=== PATIENT | female | born 1995 | race Caucasian/White ===

== ENCOUNTER 2017-10-20 19:13 | Inpatient (IN) | payer MEDICAID, OTHER ==
[~2017-10-20] VITALS: Ht 165.1 cm; Wt 81.8 kg
[~2017-10-20 19:13] MED LIST: ONDA8TAB9 PO
[2017-10-20] MEDS ORDERED: normal saline 1000ML IV soln IVB ONE (19:30)
[2017-10-20 19:52] LABS: BASOPHILS # (AUTO) 0.1 X10'3 (0-0.2); BASOPHILS % (AUTO) 0.4 % (0-1); EOSINOPHILS # (AUTO) 0.5 X10'3 (0-0.9); EOSINOPHILS % (AUTO) 2.9 % (0-6); HEMOGLOBIN 14.4 g/dl (12.0-16.0); LYMPHOCYTES # (AUTO) 2.8 X10'3 (1.1-4.8); LYMPHOCYTES % (AUTO) 17.8 % (21-51); MEAN CORPUSCULAR HEMOGLOBIN 31.1 PG (27.0-31.0); MEAN CORPUSCULAR HGB CONC 33.5 % (33.0-36.5); MEAN CORPUSCULAR VOLUME 92.8 FL (78-98); MEAN PLATELET VOLUME 9.3 FL (7.4-10.4); MONOCYTES # (AUTO) 0.7 X10'3 (0-0.9); MONOCYTES % (AUTO) 4.5 % (2-12); NEUTROPHILS # (AUTO) 11.7 X10'3 (1.8-7.7); NEUTROPHILS % (AUTO) 74.4 % (42-75); PLATELET COUNT 203 X10'3 (140-440); RED BLOOD COUNT 4.63 X10'6 (4.20-5.60); RED CELL DISTRIBUTION WIDTH 13.4 % (11.5-14.5); WHITE BLOOD COUNT 15.7 X10'3 (4.5-11.0)
[2017-10-20 20:01] LABS: PARTIAL THROMBOPLASTIN TIME 26 SECONDS (22-32); PROTHROMBIN TIME 10.1 SECONDS (9.0-12.0)
[2017-10-20 20:04] LABS: URINE HCG NEGATIVE (NEG)
[2017-10-20] MEDS ORDERED: HYDROmorphone 1 mg/ml syringe IV ONE (20:05)
[2017-10-20] MEDS ORDERED: ondansetron/PF 4mg/2ml inj IV ONE (20:05)
[2017-10-20 20:06] LABS: ALANINE AMINOTRANSFERASE 35 U/L (12-78); ALBUMIN 4.3 G/DL (3.4-5.0); ALBUMIN/GLOBULIN RATIO 1.2 (1.1-1.5); ALKALINE PHOSPHATASE 71 IU/L (46-116); ANION GAP 11 (8-16); ASPARTATE AMINO TRANSFERASE 24 U/L (10-37); BILIRUBIN,TOTAL 0.4 MG/DL (0.1-1.0); BLOOD UREA NITROGEN 10 MG/DL (7-18); BUN/CREATININE RATIO 15.2 (6.6-38.0); CHLORIDE 105 MMOL/L (99-107); CREATININE 0.66 MG/DL (0.40-0.90); GLUCOSE 100 MG/DL (70-104); LIPASE 109 U/L (73-393); POTASSIUM 3.5 MMOL/L (3.5-5.1); SODIUM 140 MMOL/L (135-145); TOTAL CARBON DIOXIDE 24.4 MMOL/L (24-32); TOTAL PROTEIN 7.8 G/DL (6.4-8.2); eGFR > 90 ML/MIN
[2017-10-20 20:26] LABS: CLARITY,URINE CLEAR (Clear); COLOR,URINE YELLOW (Yellow); GLUCOSE, URINE NEGATIVE (Neg); KETONES,URINE NEGATIVE (Neg); LEUKOCYTE ESTERASE ,URINE NEGATIVE (Neg); NITRITES, URINE NEGATIVE (Neg); OCCULT BLOOD,URINE NEGATIVE (Neg); PH,URINE >=9.0 (4.8-8.0); PROTEIN,URINE 30 mg/dl (Neg); UROBILINOGEN,URINE 0.2 E.U/dL (0.2-1.0)
[2017-10-20 20:29] LABS: UA COLLECTION TYPE CLN CATCH MIDSTREAM
[2017-10-20 20:39] LABS: BACTERIA,URINE 2+ /HPF (Neg); RBC,URINE NONE SEEN /HPF (0-2); SQUAMOUS EPITHELIAL CELL,UR MANY /LPF (FEW); WBC,URINE NONE SEEN /HPF (0-4)
[2017-10-20] MEDS ORDERED: magnesium hydroxide 30ml (MOM) UD suspension PO PRN (22:30)
[2017-10-20] MEDS ORDERED: mag hydrox/Alum hydrox/simeth 30ml oral suspension PO PRN (22:30)
[2017-10-20] MEDS ORDERED: ondansetron/PF 4mg/2ml inj IV PRN (22:30)
[2017-10-20] MEDS ORDERED: acetaminophen 325mg tablet PO PRN (22:30)
[2017-10-20] MEDS ORDERED: normal saline 1000ml 1,000 ML IV ONE (22:45)
[2017-10-20 23:45] VITALS: BP 97/60
[2017-10-21] MEDS: normal saline 1000ml 1,000 ML IV SCH ×3 (01:57→23:57)
[2017-10-21 04:30] VITALS: BP 117/71
[2017-10-21 05:20] LABS: BASOPHILS % (AUTO) 0.3 % (0-1); EOSINOPHILS # (AUTO) 0.3 X10'3 (0-0.9); EOSINOPHILS % (AUTO) 2.6 % (0-6); HEMATOCRIT 38.3 % (35.0-45.0); HEMOGLOBIN 12.8 g/dl (12.0-16.0); LYMPHOCYTES # (AUTO) 3.6 X10'3 (1.1-4.8); LYMPHOCYTES % (AUTO) 29.5 % (21-51); MEAN CORPUSCULAR HGB CONC 33.4 % (33.0-36.5); MEAN CORPUSCULAR VOLUME 92.8 FL (78-98); MEAN PLATELET VOLUME 9.5 FL (7.4-10.4); MONOCYTES # (AUTO) 0.8 X10'3 (0-0.9); MONOCYTES % (AUTO) 6.4 % (2-12); NEUTROPHILS # (AUTO) 7.4 X10'3 (1.8-7.7); NEUTROPHILS % (AUTO) 61.2 % (42-75); PLATELET COUNT 177 X10'3 (140-440); RED BLOOD COUNT 4.13 X10'6 (4.20-5.60); RED CELL DISTRIBUTION WIDTH 13.1 % (11.5-14.5); WHITE BLOOD COUNT 12.1 X10'3 (4.5-11.0)
[2017-10-21 05:37] LABS: ALBUMIN 3.2 G/DL (3.4-5.0); ANION GAP 8 (8-16); BLOOD UREA NITROGEN 7 MG/DL (7-18); BUN/CREATININE RATIO 12.1 (6.6-38.0); CALCIUM 7.9 MG/DL (8.5-10.1); CHLORIDE 111 MMOL/L (99-107); CREATININE 0.58 MG/DL (0.40-0.90); GLUCOSE 89 MG/DL (70-104); POTASSIUM 3.9 MMOL/L (3.5-5.1); SODIUM 143 MMOL/L (135-145); eGFR > 90 ML/MIN
[2017-10-21 08:00] VITALS: BP 115/83
[2017-10-21 11:14] VITALS: BP 100/68
[2017-10-21] MEDS ORDERED: NORMAL SALINE IV ONE (13:10)
[2017-10-21] MEDS ORDERED: SINCALIDE IV ONE (13:10)
[2017-10-21] MEDS: acetaminophen 325mg tablet PO PRN ×2 (16:14→21:51)
[2017-10-21 20:00] VITALS: BP 131/85
[2017-10-22] VITALS (17 sets, daily range): BP systolic 117–142; BP diastolic 60–84
[2017-10-22 05:48] LABS: BASOPHILS % (AUTO) 0.3 % (0-1); EOSINOPHILS # (AUTO) 0.5 X10'3 (0-0.9); EOSINOPHILS % (AUTO) 5.7 % (0-6); HEMATOCRIT 37.3 % (35.0-45.0); HEMOGLOBIN 12.5 g/dl (12.0-16.0); LYMPHOCYTES # (AUTO) 3.7 X10'3 (1.1-4.8); LYMPHOCYTES % (AUTO) 39.8 % (21-51); MEAN CORPUSCULAR HEMOGLOBIN 30.9 PG (27.0-31.0); MEAN CORPUSCULAR HGB CONC 33.6 % (33.0-36.5); MEAN PLATELET VOLUME 9.7 FL (7.4-10.4); MONOCYTES # (AUTO) 0.6 X10'3 (0-0.9); MONOCYTES % (AUTO) 6.4 % (2-12); NEUTROPHILS # (AUTO) 4.4 X10'3 (1.8-7.7); NEUTROPHILS % (AUTO) 47.8 % (42-75); PLATELET COUNT 174 X10'3 (140-440); RED BLOOD COUNT 4.06 X10'6 (4.20-5.60); RED CELL DISTRIBUTION WIDTH 13.5 % (11.5-14.5); WHITE BLOOD COUNT 9.3 X10'3 (4.5-11.0)
[2017-10-22 05:58] LABS: ALBUMIN 3.2 G/DL (3.4-5.0); ANION GAP 6 (8-16); BLOOD UREA NITROGEN 7 MG/DL (7-18); BUN/CREATININE RATIO 10.3 (6.6-38.0); CALCIUM 8.2 MG/DL (8.5-10.1); CHLORIDE 110 MMOL/L (99-107); CREATININE 0.68 MG/DL (0.40-0.90); GLUCOSE 77 MG/DL (70-104); POTASSIUM 3.9 MMOL/L (3.5-5.1); SODIUM 140 MMOL/L (135-145); TOTAL CARBON DIOXIDE 23.9 MMOL/L (24-32); eGFR > 90 ML/MIN
[2017-10-22] MEDS: normal saline 1000ml 1,000 ML IV SCH (10:27)
[2017-10-22] MEDS: acetaminophen 325mg tablet PO PRN (13:37)
[2017-10-22] MEDS ORDERED: ringers solution, lacted 1,000 ML IV SCH (14:06)
[2017-10-22] MEDS ORDERED: fentaNYL/PF 50MCG/1 ML 2ML syringe ONE ×2 (14:08→15:03)
[2017-10-22] MEDS ORDERED: midazolam 2 mg/2 ml injection ONE (14:08)
[2017-10-22] MEDS ORDERED: propofol inj 20 ML IV ONE (14:10)
[2017-10-22] MEDS ORDERED: rocuronium 10mg/ml inj IV ONE (14:10)
[2017-10-22] MEDS ORDERED: proCHLORperazine 10 MG/2 ml inj IV PRN (14:10)
[2017-10-22] MEDS ORDERED: LIDOcaine 2% (20mg/ml) 5ml vial ONE (14:10)
[2017-10-22] MEDS ORDERED: ondansetron/PF 4mg/2ml inj IV PRN (14:10)
[2017-10-22] MEDS ORDERED: meperidine/PF 25mg/ml syringe IV PRN ×3 (14:10)
[2017-10-22] MEDS ORDERED: LIDOcaine 1% 30ml vial 30 ML ONE (14:15)
[2017-10-22] MEDS ORDERED: BUPIVAcaine/PF 2.5 mg/ml (0.25%) 30ml vial ONE (14:15)
[2017-10-22] MEDS ORDERED: LIDOcaine 1% 30ml vial IJ ONE (14:22)
[2017-10-22] MEDS ORDERED: sevoflurane 250ml liquid IH ONE (14:47)
[2017-10-22] MEDS ORDERED: dexamethasone sod phosphate 4mg/ml inj. ONE (15:15)
[2017-10-22] MEDS ORDERED: ceFAZolin 1000mg inj ONE (15:15)
[2017-10-22] MEDS ORDERED: neostigmine methylsulfate 1 MG/ML 10ml vial ONE (15:42)
[2017-10-22] MEDS ORDERED: glycopyrrolate 0.2mg/ml inj ONE (15:42)
[2017-10-22] MEDS ORDERED: ondansetron/PF 4mg/2ml inj ONE (15:42)
[2017-10-22] MEDS ORDERED: ketorolac trometh. 30mg/ml inj. ONE (15:42)
[2017-10-23] MEDS: normal saline 1000ml 1,000 ML IV SCH ×3 (00:26→10:26)
[2017-10-23 04:00] VITALS: BP 140/77
[2017-10-23 05:00] LABS: BASOPHILS % (AUTO) 0.1 % (0-1); EOSINOPHILS # (AUTO) 0.2 X10'3 (0-0.9); EOSINOPHILS % (AUTO) 1.1 % (0-6); HEMATOCRIT 38.5 % (35.0-45.0); HEMOGLOBIN 13.1 g/dl (12.0-16.0); LYMPHOCYTES # (AUTO) 1.8 X10'3 (1.1-4.8); LYMPHOCYTES % (AUTO) 12.9 % (21-51); MEAN CORPUSCULAR HEMOGLOBIN 31.3 PG (27.0-31.0); MEAN CORPUSCULAR HGB CONC 34.1 % (33.0-36.5); MEAN CORPUSCULAR VOLUME 91.8 FL (78-98); MEAN PLATELET VOLUME 9.6 FL (7.4-10.4); MONOCYTES # (AUTO) 0.6 X10'3 (0-0.9); NEUTROPHILS # (AUTO) 11.2 X10'3 (1.8-7.7); NEUTROPHILS % (AUTO) 81.9 % (42-75); PLATELET COUNT 197 X10'3 (140-440); RED BLOOD COUNT 4.19 X10'6 (4.20-5.60); RED CELL DISTRIBUTION WIDTH 12.7 % (11.5-14.5); WHITE BLOOD COUNT 13.7 X10'3 (4.5-11.0)
[2017-10-23 05:21] LABS: ALBUMIN 3.7 G/DL (3.4-5.0); ANION GAP 11 (8-16); BLOOD UREA NITROGEN 9 MG/DL (7-18); BUN/CREATININE RATIO 13.6 (6.6-38.0); CALCIUM 8.6 MG/DL (8.5-10.1); CHLORIDE 104 MMOL/L (99-107); CREATININE 0.66 MG/DL (0.40-0.90); GLUCOSE 85 MG/DL (70-104); SODIUM 136 MMOL/L (135-145); TOTAL CARBON DIOXIDE 21.2 MMOL/L (24-32); eGFR > 90 ML/MIN
[2017-10-23 07:27] VITALS: BP 127/91
[2017-10-23] MEDS: HYDROcodone/acetaminophen 10/325mg tab PO PRN ×2 (10:18→17:18)
[2017-10-23] MEDS ORDERED: ibuprofen tablet 400 MG TABLET PO SCH (12:30)
[2017-10-23] MEDS ORDERED: HYDR-3972 PO (16:44)
== END 2017-10-23 17:00 | disposition home or self-care (01) | DRG 263 ==
LOC: ER 19:13 → ED HOLD 22:26 → SUR 3N 23:51 → PACU 10-22 14:24 → SUR 3N 10-22 16:50
PROVIDERS: ADMIT Internal Medicine; ATTEND Surgery
PROC: CF141ZZ Planar Nuclear Medicine Imaging of Gallbladder using Technetium 99m (Tc-99m) (ICD-10-PCS; 2017-10-21)
PROC: 0FT44ZZ Resection of Gallbladder, Percutaneous Endoscopic Approach (ICD-10-PCS; principal; 2017-10-22 14:48)
DX: K82.8 Other specified diseases of gallbladder (principal); F17.210 Nicotine dependence, cigarettes, uncomplicated; Z82.49 Family history of ischemic heart disease and other diseases of the circulatory system; Z98.891 History of uterine scar from previous surgery; Z71.6 Tobacco abuse counseling
CPT/HCPCS: 36415; 76700; 78227; 80048; 80053; 81001; 81025; 83690; 85025; 85610; 85730; 87070; 96374; 96375; 99285; A7000; A9537; J0690; J1100; J1170; J1885; J2001; J2175; J2250; J2270; J2405; J2704; J2710; J2805; J3010; J3490; J7030; J7120

== ENCOUNTER 2017-12-02 11:26 | Emergency (ER) | payer BC, MEDICAID ==
[~2017-12-02] VITALS: Ht 162.6 cm; Wt 71.5 kg
[~2017-12-02 11:26] MED LIST changes: +HYDR-3972 PO
[2017-12-02 12:59] LABS: URINE HCG NEGATIVE (NEG)
[2017-12-02 13:02] LABS: CLARITY,URINE CLOUDY (Clear); COLOR,URINE YELLOW (Yellow); GLUCOSE, URINE NEGATIVE (Neg); KETONES,URINE TRACE mg/dl (Neg); LEUKOCYTE ESTERASE ,URINE NEGATIVE (Neg); NITRITES, URINE NEGATIVE (Neg); OCCULT BLOOD,URINE MODERATE (Neg); PH,URINE 5.5 (4.8-8.0); PROTEIN,URINE 30 mg/dl (Neg)
[2017-12-02 13:04] LABS: UA COLLECTION TYPE CLN CATCH MIDSTREAM
[2017-12-02 13:08] LABS: MUCUS STRANDS MANY /LPF (Neg); SQUAMOUS EPITHELIAL CELL,UR MANY /LPF (FEW)
[2017-12-02 13:29] LABS: BACTERIA,URINE 1+ /HPF (Neg)
[2017-12-02 13:32] LABS: RBC,URINE 0-2 /HPF (0-2)
[2017-12-02] MEDS ORDERED: HYDROcodone/acetaminophen 10/325mg tab PO ONE (14:00)
[2017-12-02] MEDS ORDERED: predniSONE 20 mg tablet PO ONE (14:00)
[2017-12-02] MEDS ORDERED: FLUC200T PO (14:23)
[2017-12-02] MEDS ORDERED: PRED20TA PO (14:23)
[2017-12-02] MEDS ORDERED: HYDR-565 PO (14:23)
[2017-12-02 14:45] VITALS: BP 136/68
== END 2017-12-02 14:48 | disposition home or self-care (01) ==
LOC: ER 11:27
DX: N76.0 Acute vaginitis (principal); Z79.899 Other long term (current) drug therapy
CPT/HCPCS: 81001; 81025; 87088; 87252; 99284; J7512